=== PATIENT | male | born 1970 | race Caucasian/White ===

== ENCOUNTER 2021-02-04 13:25 | Emergency (ER) | payer OTHER ==
[2021-02-04] MEDS ORDERED: Lidocaine 2% 20 ML MDV SUBCUT ONE (14:11)
[2021-02-04] MEDS ORDERED: Bacitracin Oint 1 GM U/D Packet TOP ONE (14:11)
--- NOTE | 2021-02-04 14:20 | EDM.PDOC ---
ED HPI GENERAL MEDICAL PROBLEM - General Chief Complaint: Laceration Stated Complaint: CUT TO LT FINGER Time Seen by Provider: 02/04/21 14:10 Source of Information: Reports: Patient, Old Records, RN History Limitations: Reports: No Limitations - History of Present Illness INITIAL COMMENTS - FREE TEXT/NARRATIVE: 40 yo male here with a laceration to the L long finger tip from his saw at home today. No other injuries. Tetanus 4 yrs ago he says. 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: Reports: Other (see below) (none) Left Finger-Middle Pain Score (Numeric/FACES): 6 - Related Data Allergies Allergy/AdvReac Type Severity Reaction Status Date / Time contrast dye for cat scan Allergy Itching Uncoded 02/04/21 13:45 Home Meds: Home Meds allopurinoL [Zyloprim] 200 mg PO DAILY 02/04/21 [History] lisinopriL [Lisinopril] 20 mg PO DAILY 02/04/21 [History] Past Medical History HEENT History: Reports: None Cardiovascular History: Reports: None, Hypertension Respiratory History: Reports: None Genitourinary History: Reports: None Musculoskeletal History: Reports: Gout Neurological History: Reports: None Psychiatric History: Reports: None Endocrine/Metabolic History: Reports: None Hematologic History: Reports: None Oncologic (Cancer) History: Reports: None Dermatologic History: Reports: None - Infectious Disease History Infectious Disease History: Reports: Chicken Pox - Past Surgical History HEENT Surgical History: Reports: None GI Surgical History: Reports: Hernia, Abdominal Social & Family History - Tobacco Use Tobacco Use Status *Q: Never Tobacco User - Caffeine Use Caffeine Use: Reports: Coffee - Recreational Drug Use Recreational Drug Use: No ED ROS GENERAL - Review of Systems Review Of Systems: See Below Constitutional: Reports: No Symptoms Skin: Reports: Wound (L long finger tip) Neurological: Reports: No Symptoms ED EXAM, SKIN/RASH Exam: See Below Exam Limited By: No Limitations General Appearance: Alert, WD/WN, No Apparent Distress Neurological: Alert, Oriented, CN II-XII Intact, Normal Cognition, No Motor/Sensory Deficits Psychiatric: Normal Affect, Normal Mood Skin: Warm, Dry, Normal Color, No Rash, Wound/Incision (2 cm linear lac to tip of L long finger. ). No: Intact Location, Skin: Upper Extremity, Left Characteristics: Linear Associated features: Tenderness ED SKIN PROCEDURES - Laceration/Wound Repair Left Distal Digit - 3rd (Middle) Appearance: Subcutaneous, Linear, Clean Anesthetic Type: Digital Local Anesthesia - Lidocaine (Xylocaine): 2% Plain Local Anesthetic Volume: 5cc Skin Prep: Saline Saline Irrigation (cc's): 35 Exploration/Debridement/Repair: Wound Explored Closed with: Sutures Lac/Wound length In cm: 2 Suture Size: 5-0 # of Sutures: 7 Suture Type: Nylon, Interrupted, Simple Drain Placement: No Sterile Dressing Applied: Nurse Tetanus Status Addressed: Yes Complications: No Course - Vital Signs Last Recorded V/S: Last Vital Signs Temp 36.1 C 02/04/21 13:49 Pulse 87 02/04/21 13:49 Resp 18 02/04/21 13:49 BP 142/85 H 02/04/21 13:49 Pulse Ox 94 L 02/04/21 13:49 - Orders/Labs/Meds Meds: Medications Discontinued Medications Generic Name Dose Route Start Last Admin Trade Name Freq PRN Reason Stop Dose Admin Bacitracin 1 dose 02/04/21 14:11 02/04/21 14:22 Bacitracin Oint 1 Gm U/D Packet TOP 02/04/21 14:12 1 dose ONETIME ONE Administration Lidocaine HCl 7 ml 02/04/21 14:11 02/04/21 14:22 Lidocaine 2% 20 Ml Mdv SUBCUT 02/04/21 14:12 7 ml ONETIME ONE Administration Departure - Departure Time of Disposition: 15:00 Disposition: Home, Self-Care 01 Condition: Fair Clinical Impression: Finger laceration Qualifiers: Encounter type: initial encounter Finger: middle finger Damage to nail status: without damage Foreign body presence: without foreign body Laterality: left Qualified Code(s): S61.213A - Laceration without foreign body of left middle finger without damage to nail, initial encounter - Discharge Information *PRESCRIPTION DRUG MONITORING PROGRAM REVIEWED*: Not Applicable *COPY OF PRESCRIPTION DRUG MONITORING REPORT IN PATIENT RAZIA: Not Applicable Instructions: Laceration Care, Adult, [id number] Referrals: Judy Sen MD [Primary Care Provider] - Forms: ED Department Discharge Additional Instructions: Clean wound twice daily with soap and water. Dry. Apply antibiotic ointment and a new dressing. Watch for and report signs of infection. Acetaminophen for pain relief. Stitches out in 10 days. Keep wound clean x 3 days. Sepsis Event Note (ED) - Evaluation Sepsis Screening Result: No Definite Risk - Focused Exam Vital Signs: Vital Signs Temp Pulse Resp BP Pulse Ox 02/04/21 13:49 36.1 C 87 18 142/85 H 94 L 02/04/21 13:44 36.1 C 87 18 142/85 H 94 L
== END 2021-02-04 15:32 | disposition home or self-care (01) ==
LOC: EDBD 13:25 → JP.ED 13:25
DX: S61.213A Laceration without foreign body of left middle finger without damage to nail, initial encounter (principal); I10 Essential (primary) hypertension; Z79.899 Other long term (current) drug therapy; Z91.041 Radiographic dye allergy status; W26.8XXA Contact with other sharp object(s), not elsewhere classified, initial encounter; Y92.009 Unspecified place in unspecified non-institutional (private) residence as the place of occurrence of the external cause
CPT/HCPCS: 12001; 99282-25